=== PATIENT | female | born 2000 | race American Indian/Alaskan Native ===

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

== ENCOUNTER 2020-10-08 12:38 | Outpatient (CLI) | payer OTHER ==
[2020-10-08 12:57] VITALS: BP 102/56
[2020-10-08] MEDS ORDERED: LACTATED RINGERS 1,000 ML IV ONE (13:26)
== END 2020-10-08 14:00 | disposition home or self-care (01) ==
LOC: TRG 12:38 → APU 12:40 → TRG 14:00
PROVIDERS: ATTEND Obstetrics & Gynecology
DX: O47.03 False labor before 37 completed weeks of gestation, third trimester (principal); Z3A.34 34 weeks gestation of pregnancy
CPT/HCPCS: 59025

== ENCOUNTER 2020-11-10 14:46 | Outpatient (CLI) | payer OTHER ==
[2020-11-10 15:17] VITALS: BP 116/57
[2020-11-10 18:38] LABS: Bilirubin,Urine NEG (Negative); Blood,Urine MOD (Negative); Color,Urine Yellow (Yellow); Mucus,Urine FEW /HPF
[2020-11-10 18:40] LABS: Amphetamine Screen,Urine Negative; Benzodiazepines Screen,Urine Negative; Cannabinoid Screen,Urine Negative; Cocaine Screen,Urine Negative; Methadone Screen,Urine Negative; Opiate Screen,Urine Negative
--- NOTE | 2020-11-10 19:32 | Ultrasound Report ---
ULTRASOUND OBSTETRIC LIMITED ULTRASOUND BIOPHYSICAL PROFILE INDICATION / CLINICAL INFORMATION: BPP, ADRIANA, check placenta. Clinical Gestational Age (GA): 38.5 weeks.days COMPARISON: None available. FINDINGS: BREATHING MOVEMENT = 2 GROSS BODY MOVEMENT = 2 TONE = 2 QUALITATIVE AMNIOTIC FLUID VOLUME = 2 TOTAL BIOPHYSICAL SCORE = 8/8 HEART RATE (beats per minute): 131 AMNIOTIC FLUID INDEX (cm) = 11.4 (normal = 7-24 cm) PRESENTATION: Cephalic. ADDITIONAL FINDINGS: The placenta is located laterally on the right, is grade 3 and is free of the os . There is no evidence of abruption. IMPRESSION: 1. Biophysical Score = 8/8 2. ADRIANA 11.4 cm. 3. Grade 3 placenta without previa or abruption. Signer Name: Uzair Fowler MD Signed: 11/10/2020 7:28 PM Workstation Name: [id number]
== END 2020-11-10 19:34 | disposition home or self-care (01) ==
LOC: TRG 14:46 → APU 14:49 → TRG 19:34
DX: O47.1 False labor at or after 37 completed weeks of gestation (principal); Z3A.38 38 weeks gestation of pregnancy
CPT/HCPCS: 59025; 76815; 76819; 80307; 81001

== ENCOUNTER 2020-11-21 08:34 | Inpatient (IN) | payer OTHER ==
[2020-11-21] MEDS ORDERED: LOPERAMIDE 2 MG CAP PO PRN (10:00)
[2020-11-21] MEDS ORDERED: ePHEDrine SULFATE 50 MG/1 ML INJ IV PRN ×2 (10:00→20:18)
[2020-11-21] MEDS ORDERED: ACETAMINOPHEN 325 MG TAB PO PRN (10:00)
[2020-11-21] MEDS ORDERED: TERBUTALINE 1 MG/1 ML INJ SUB-Q PRN (10:00)
[2020-11-21] MEDS ORDERED: OXYTOCIN DRIP 30 UNITS/500 ML BAG IV SCH ×2 (10:00)
[2020-11-21] MEDS ORDERED: OXYTOCIN 10 UNIT/1 ML INJ IM PRN (10:00)
[2020-11-21] MEDS ORDERED: LIDOCAINE (2%) 20 MG/1 ML VIAL 20 ML MDV INFILTRATI SCH (10:00)
[2020-11-21] MEDS ORDERED: miSOPROStol 200 MCG TAB PR PRN (10:00)
[2020-11-21] MEDS ORDERED: METHYLERGONOVINE MALEATE 0.2 MG/ML VIAL IM PRN (10:00)
[2020-11-21] MEDS ORDERED: CARBOPROST TROMETHAMINE 250 MCG/1 ML INJ IM PRN (10:00)
[2020-11-21] MEDS ORDERED: MINERAL OIL 30 ML ORAL LIQD PO PRN (10:00)
[2020-11-21] MEDS ORDERED: fentaNYL 100 MCG/2 ML INJ IV PRN (10:00)
[2020-11-21] MEDS: LACTATED RINGERS 1,000 ML IV SCH ×2 (10:09→19:55)
[2020-11-21 10:10] LABS: Hematocrit 26.9 % (30.3-42.9); Hemoglobin 8.7 gm/dl (10.1-14.3); Mean Corpuscular HGB Conc 32 % (30-34); Mean Corpuscular Volume 76 fl (79-97); Platelet Count 265 K/mm3 (140-440); Red Blood Count 3.54 M/mm3 (3.65-5.03); Red Cell Distribution Width 19.9 % (13.2-15.2)
--- NOTE | 2020-11-21 10:15 | History and Physical Report ---
History of Present Illness Date of admission: 11/21/20 08:34 Chief complaint: Here for scheduled induction of labor. History of present illness: 20 year old female presents for scheduled induction of labor. Patient received care from [facility] and records are available. LMP uncertain. EDC 11/19/20 (based on 13 week US). significant for the following: (Late transfer-in for care; in early part of her , saw Fernando Green), genital herpes (has been on Valtrex suppression and has no lesions or prodromal symptoms), close spacing (has a 1 year old at home). 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 Past History Past Medical History: no pertinent history Past Surgical History: no surgical history [facility] History: herpes (on Valtrex suppression, no lesions or prodromal symptoms). denies: chlamydia, gonorrhea, hepatitis B, hepatitis C, HIV, syphilis, trichomonas Family/Genetic History: other (asthma (brother)) Social history: full code. denies: smoking, alcohol abuse, prescription drug abuse, IV drug use - Obstetrical History Expected Date of Delivery: 11/19/20 Actual Gestation: 40 Week(s) 2 Day(s) : 2 Para: 1 Hx # Term Pregnancies: 1 Number of Pregnancies: 0 Spontaneous Abortions: 0 Induced : 0 Number of Living Children: 1 Medications and Allergies Allergies Allergy/AdvReac Type Severity Reaction Status Date / Time No Known Allergies Allergy Verified 08/03/19 20:22 Home Medications Medication Instructions Recorded Confirmed Last Taken Type valACYclovir [Valtrex] 500 mg PO BID 11/21/20 11/21/20 11/21/20 History 0700 Active Meds: Active Medications Acetaminophen (Acetaminophen 325 Mg Tab) 650 mg PO Q4H PRN PRN Reason: Pain, Mild (1-3) Butorphanol Tartrate (Butorphanol 2 Mg/1 Ml Inj) 1 mg IV Q2H PRN PRN Reason: Pain, Moderate(4-6) LABOR PAIN Carboprost Tromethamine (Carboprost Tromethamine 250 Mcg/1 Ml Inj) 250 mcg IM ONCE PRN PRN Reason: Uterine Bleeding Ephedrine Sulfate (Ephedrine Sulfate 50 Mg/1 Ml Inj) 10 mg IV Q2M PRN PRN Reason: Hypotension Fentanyl (Fentanyl 100 Mcg/2 Ml Inj) 100 mcg IV Q2H PRN PRN Reason: Pain,Severe (7-10) LABOR PAIN Oxytocin/Sodium Chloride (Pitocin/Ns 30 Unit/500ml) 30 units in 500 mls @ 2 mls/hr IV TITR UBALDO; Protocol Lactated Ringer's (Lactated Ringers) 1,000 mls @ 125 mls/hr IV DIRECT UBALDO Last Admin: 11/21/20 10:09 Dose: 125 mls/hr Documented by: Oxytocin/Sodium Chloride (Pitocin/Ns 30 Unit/500ml) 30 units in 500 mls @ 40 mls/hr IV TITR UBALDO; Protocol Lidocaine (Lidocaine (2%) 20 Mg/1 Ml Vial 20 Ml Mdv) 20 ml INFILTRATI ONCE UBALDO Stop: 11/22/20 09:59 Loperamide HCl (Loperamide 2 Mg Cap) 2 mg PO ONCE PRN PRN Reason: give with Hemabate Methylergonovine Maleate (Methylergonovine Maleate 0.2 Mg/Ml Vial) 0.2 mg IM ONCE PRN PRN Reason: Uterine Bleeding Mineral Oil (Mineral Oil 30 Ml Oral Liqd) 30 ml PO QHS PRN PRN Reason: Constipation Misoprostol (Misoprostol 200 Mcg Tab) 800 mcg [place] ONCE PRN PRN Reason: Uterine Bleeding Oxytocin (Oxytocin 10 Unit/1 Ml Inj) 10 unit IM ONCE PRN PRN Reason: Uterine Bleeding Terbutaline Sulfate (Terbutaline 1 Mg/1 Ml Inj) 0.25 mg SUB-Q ONCE PRN PRN Reason: Hyperstimulation/Hypertonicity Valacyclovir HCl (Valacyclovir 500 Mg Tab) 500 mg PO BID UBALDO Review of Systems All systems: negative (contractions) - Vital Signs Vital signs: Vital Signs Pulse BP Pulse Ox 77 110/67 100 11/21/20 08:49 11/21/20 08:49 11/21/20 08:49 Temp Pulse Resp BP Pulse Ox 97.8 F 73 16 110/67 100 11/21/20 09:19 11/21/20 10:04 11/21/20 09:19 11/21/20 09:19 11/21/20 10:04 - Physical Exam Abdomen: Positive: normal appearance, soft. Negative: distention, tenderness, guarding, rigidity Genitourinary (Female): Positive: normal external genitalia, normal perenium. Negative: perineal/vulvar lesions (no lesions seen on careful exam with bright light upon admission) Vagina: Positive: normal moisture Uterus: Positive: enlarged. Negative: tender Anus/Rectum: Positive: normal perianal skin Extremities: Negative: tenderness, edema - Obstetrical FHR: category 1 Uterine Contraction Monitor Mode: External Cervical Dilatation: 1 Cervical Effacement Percentage: 50 station: -2 Uterine Contraction Pattern: Irregular Uterine Contraction Intensity: Mild Results All other labs normal. Assessment and Plan A: at 40 weeks, 2 days gestation. GBS negative. 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 P: Admit. Continuous EFM. Continue Valtrex suppression of HSV. Pitocin to augment labor. Discussed Pitocin augmentation of labor. Patient consented to augmentation of labor.
[2020-11-21] MEDS: valACYclovir 500 MG TAB PO SCH (10:21)
[2020-11-21] MEDS ORDERED: ONDANSETRON 4 MG/2 ML INJ IV PRN (12:58)
[2020-11-21] MEDS: BUTORPHANOL 2 MG/1 ML INJ IV PRN ×2 (13:08→19:08)
--- NOTE | 2020-11-21 14:25 | Ultrasound Report ---
US OB limited INDICATION / CLINICAL INFORMATION: Confirm presentation. COMPARISON: None available. FINDINGS: lie is cephalic. heart rate is 144. IMPRESSION: 1. lie is cephalic. Signer Name: Stuart Tolentino MD Signed: 11/21/2020 2:20 PM Workstation Name: [id number]
[2020-11-21] MEDS ORDERED: NALOXONE 2 MG/2 ML INJ IV PRN (20:18)
--- NOTE | 2020-11-21 20:21 | Anesthesia Consultation ---
Anesthesia Consult and Med Hx Date of service: 11/21/20 - Airway Anesthetic Teeth Evaluation: Good ROM Head & Neck: Adequate Mental/Hyoid Distance: Adequate Mallampati Class: Class II Intubation Access Assessment: Good - Pulmonary Exam CTA: Yes - Cardiac Exam Cardiac Exam: RRR - Pre-Operative Health Status ASA Pre-Surgery Classification: ASA2 Proposed Anesthetic Plan: Epidural - Pulmonary Hx Smoking: Yes (Marijuana none dring ) Hx Asthma: No Hx Respiratory Symptoms: No SOB: No COPD: No Home Oxygen Therapy: No Hx Pneumonia: No Hx Sleep Apnea: No - Cardiovascular System Hx Hypertension: No Hx Coronary Artery Disease: No Hx Heart Attack/AMI: No Hx Angina: No Hx Percutaneous Transluminal Coronary Angioplasty (PTCA): No Hx Cardia Arrhythmia: No Hx Pacemaker: No Hx Internal Defibrillator: No Hx Valvular Heart Disease: No Hx Heart Murmur: No Hx Peripheral Vascular Disease: No - Central Nervous System Hx Neuromuscular Disorder: No Hx Seizures: No CVA: No Hx Back Pain: No Hx Psychiatric Problems: No - Gastrointestinal Hx Ulcer: No Hx Gastroesophageal Reflux Disease: No - Endocrine Hx Renal Disease: No Hx End Stage Renal Disease: No Hx Cirrhosis: No Hx Liver Disease: No Hx Insulin Dependent Diabetes: No Hx Non-Insulin Dependent Diabetes: No Hx Thyroid Disease: No Hx Hypothyroidism: No Hx Hyperthyroidism: No - Hematic Hx Anemia: No Hx Sickle Cell Disease: No - Other Systems Hx Alcohol Use: No Hx Substance Use: No Hx Cancer: No Hx Obesity: No
--- NOTE | 2020-11-21 20:54 | Progress Note ---
Labor Epidural - Labor Epidural Start Time: 20:31 Stop Time: 20:41 Performed by:: NILDA ALAN Procedure: Patient is requesting a laboring epidural for laboring pain. Patient IDed, H&P reviewed, all questions and concerns were answered, and consent was signed. Timeout was performed at bedside. Patient in sitting position. Sterile prep and drape was performed. [3] ml of 1% lidocaine skin wheal at L[3]- L [4]. 18- gauge [place] epidural needle was advanced to loss of resistance with saline technique 6cm x2 attempt. Negative CSF negative blood. Epidural catheter advanced to [10] centimeters. [NEGATIVE] Aspiration [NEGATIVE] test dose. Sterile dressing applied. Patient tolerated procedure.
[2020-11-21] MEDS ORDERED: fentaNYL-BUPIV 2 MCG/ML-0.125% 200 MCG/100 ML BAG EPIDURAL SCH (21:00)
[2020-11-22] MEDS ORDERED: LANOLIN/ZINC/DIMETHICONE (LANSINOH) 7 GM TP PRN (01:13)
[2020-11-22] MEDS ORDERED: ACETAMINOPHEN 325 MG TAB PO PRN (01:13)
[2020-11-22] MEDS ORDERED: MAGNESIUM HYDROXIDE (MOM) ORAL LIQD UDC PO PRN (01:13)
[2020-11-22] MEDS ORDERED: diphenhydrAMINE 25 MG CAP PO PRN (01:13)
[2020-11-22] MEDS ORDERED: ONDANSETRON 4 MG/2 ML INJ IV PRN (01:13)
[2020-11-22] MEDS ORDERED: WITCH HAZEL/ GLYCERIN PAD TP PRN (01:13)
[2020-11-22] MEDS ORDERED: PROMETHAZINE 25 MG RECT SUPP PR PRN (01:13)
[2020-11-22] MEDS ORDERED: PROMETHAZINE 25 MG TAB PO PRN (01:13)
--- NOTE | 2020-11-22 01:20 | Procedure Note ---
Date of procedure: 11/22/20 Pre-op diagnosis: 40 wks iup Post-op diagnosis: same Procedure: ,MALE WGT 7'11", 8,9. no tears. rectal mucosa intact. spontaneous placenta. Anesthesia: epidural Surgeon: KAVITA JACK Estimated blood loss: 50-100ml Pathology: none Specimen disposition: discarded Condition: stable Disposition: PACU
--- NOTE | 2020-11-22 03:15 | Post Anesthesia Evaluation ---
- Post Anesthesia Evaluation Patient Participated: Yes Airway Patent: Yes Stable Respiratory Function: Yes Nausea/Vomiting: No Temp > 96.8F: Yes Pain Manageable: Yes Adequeate Hydration: Yes Anesthesia Complications: No Block Receding Appropriately: Yes Patient on Ventilator: No
[2020-11-22] MEDS: IBUPROFEN 600 MG TAB PO SCH ×4 (05:13→22:59)
[2020-11-22] MEDS: HYDROcodone/ACETAMINOPHEN 5-325 MG TAB PO PRN ×2 (08:40→14:32)
[2020-11-22] MEDS: valACYclovir 500 MG TAB PO SCH ×2 (10:15→21:53)
[2020-11-22] MEDS: DOCUSATE SODIUM 100 MG CAP PO SCH ×2 (10:15→21:53)
[2020-11-22 13:29] LABS: Hematocrit 26.4 % (30.3-42.9); Hemoglobin 8.3 gm/dl (10.1-14.3)
[2020-11-23] MEDS: IBUPROFEN 600 MG TAB PO SCH ×3 (05:49→21:50)
[2020-11-23] MEDS ORDERED: TETANUS,DIPH,PERTUSS(ACELL) VACCINE 0.5 ML SYRINGE IM ONE (06:00)
[2020-11-23] MEDS: DOCUSATE SODIUM 100 MG CAP PO SCH ×2 (09:52→21:50)
[2020-11-23] MEDS: FERROUS SULFATE 325 MG TAB PO SCH ×2 (09:52→21:50)
[2020-11-23] MEDS: valACYclovir 500 MG TAB PO SCH ×2 (09:52→21:50)
--- NOTE | 2020-11-23 10:11 | Progress Note ---
Assessment and Plan A: S/P Asymptomatic anemia P: Continue routine pp care Fe prescribed D/C home tomm if stable per pt's request Subjective - Subjective Date of service: 11/23/20 Principal diagnosis: s/p Patient reports: appetite normal, voiding normally, pain well controlled, ambulating normally, other (denies, sob, dizziness, or weakness) [place]: doing well, bottle feeding Objective - Vital Signs Latest vital signs: Vital Signs Temp Pulse Resp BP BP Pulse Ox 11/23/20 08:42 97.9 F 75 18 125/77 100 11/23/20 00:00 98 F 74 16 105/77 11/22/20 20:27 98.0 F 64 18 127/73 100 11/22/20 16:10 97.9 F 58 L 18 117/69 Intake and Output 11/22/20 11/23/20 11/23/20 22:59 06:59 14:59 Intake Total 440 360 Balance 440 360 Intake: Oral 440 360 Other: Total, Intake Amount 200 360 # Voids Void 1 1 1 - Exam Breasts: Present: normal Abdomen: Present: normal appearance, soft, normal bowel sounds Vulva: both: normal Uterus: Present: normal, firm Extremities: Present: normal - Labs Labs: Abnormal lab results 11/22/20 Range/Units 12:40 Hgb 8.3 L (10.1-14.3) gm/dl Hct 26.4 L (30.3-42.9) %
[2020-11-23] MEDS: HYDROcodone/ACETAMINOPHEN 5-325 MG TAB PO PRN (22:46)
[2020-11-24] MEDS: IBUPROFEN 600 MG TAB PO SCH ×3 (05:20→14:00)
[2020-11-24] MEDS: valACYclovir 500 MG TAB PO SCH (10:11)
[2020-11-24] MEDS: FERROUS SULFATE 325 MG TAB PO SCH (10:11)
[2020-11-24] MEDS: DOCUSATE SODIUM 100 MG CAP PO SCH (10:12)
--- NOTE | 2020-11-24 14:20 | Progress Note ---
Assessment and Plan A: day 2 S/P . Anemia. P: Discharge patient home today. Discussed with patient discharge instructions and warning signs. Advised patient to continue taking her vitamin and iron supplements at home. Advised patient to avoid intercourse, lifting, and heavy housework. Advised patient to follow up at [facility] in 6 weeks. Patient voiced understanding of all instructions. Subjective - Subjective Date of service: 11/24/20 Principal diagnosis: day 2 S/P Interval history: Patient requests discharge home today. Patient reports: appetite normal, voiding normally, pain well controlled, flatus, ambulating normally, no dizzy ambulation, no nauseated [place]: doing well Objective - Vital Signs Latest vital signs: Vital Signs Temp Pulse Resp BP BP Pulse Ox 11/24/20 08:20 98.6 F 56 L 20 97/54 99 11/24/20 01:13 98.3 F 73 20 122/60 96 11/23/20 22:46 18 11/23/20 16:40 97.6 F 67 18 120/57 11/23/20 15:05 16 Intake and Output 11/23/20 11/24/20 11/24/20 23:59 07:59 15:59 Intake Total 560 240 720 Balance 560 240 720 Intake: Oral 320 360 Intake, Free Water 240 240 360 Other: Total, Intake Amount 320 240 # Voids Void 1 1 1 - Exam Cardiovascular: Present: Regular rate Lungs: Present: Clear to auscultation Abdomen: Present: normal appearance, soft. Absent: distention, tenderness, guarding, rigidity Uterus: Present: normal, firm, fundal height below umbilicus. Absent: bogginess, tenderness Extremities: Present: normal. Absent: tenderness, edema
--- NOTE | 2020-11-24 14:23 | Discharge Summary ---
Providers - Providers Date of Admission: 11/21/20 08:34 Date of discharge: 11/24/20 Attending physician: KAVITA JACK MD Primary care physician: KAVITA JACK MD Hospitalization Reason for admission: induction of labor Delivery: Episiotomy: none Laceration: none Other procedures: none complications: none Discharge diagnosis: IUP at term delivered [place] baby: male Pertinent studies: Labs Hospital course: Normal hospital course Condition at discharge: Good Disposition: DC-01 TO HOME OR SELFCARE - Discharge Diagnoses (1) Term delivered Status: Acute (2) Anemia Status: Acute Qualifiers: Anemia type: iron deficiency Plan - Provider Discharge Summary Activity: routine, no sex for 6 weeks, no heavy lifting 4 weeks, no strenuous exercise Diet: routine Instructions: routine Additional instructions: Continue taking your vitamin and iron supplements at home. Follow up at [facility] in 6 weeks. Call your doctor immediately for: * Fever > 100.5 * Heavy vaginal bleeding ( >1 pad per hour) * Severe persistent headache * Shortness of breath * Reddened, hot, painful area to leg or breast - Follow up plan Follow up: KAVITA JACK MD [Primary Care Provider] - 6 Weeks
[2020-11-24 15:00] VITALS: BP 113/66
== END 2020-11-24 15:46 | disposition home or self-care (01) | DRG 774 ==
LOC: LD 08:34 → OB 11-22 02:59
PROC: 10E0XZZ Delivery of Products of Conception, External Approach (ICD-10-PCS; principal; 2020-11-22)
PROC: 3E0R3BZ Introduction of Anesthetic Agent into Spinal Canal, Percutaneous Approach (ICD-10-PCS; 2020-11-22)
PROC: 00HU33Z Insertion of Infusion Device into Spinal Canal, Percutaneous Approach (ICD-10-PCS; 2020-11-22)
PROC: 3E0234Z Introduction of Serum, Toxoid and Vaccine into Muscle, Percutaneous Approach (ICD-10-PCS; 2020-11-23)
DX: O98.32 Other infections with a predominantly sexual mode of transmission complicating childbirth (principal); Z3A.40 40 weeks gestation of pregnancy; Z37.0 Single live birth; O99.02 Anemia complicating childbirth; Z23 Encounter for immunization; Z20.822 Contact with and (suspected) exposure to COVID-19; D50.9 Iron deficiency anemia, unspecified; A60.00 Herpesviral infection of urogenital system, unspecified
CPT/HCPCS: 36415; 76815; 85014; 85018; 85027; 86592; 86850; 86900; 86901; 90471; 90715; G0378; J0595; J2405; J2590; J7120; U0003

== ENCOUNTER 2021-09-06 14:28 | Outpatient (CLI) | payer OTHER ==
[2021-09-06 17:28] LABS: Basophils % (Auto) 0.4 % (0.0-1.8); Eosinophils % (Auto) 0.4 % (0.0-4.3); Hemoglobin 8.7 gm/dl (10.1-14.3); Lymphocytes % (Auto) 22.9 % (13.4-35.0); Mean Corpuscular HGB Conc 32 % (30-34); Mean Corpuscular Volume 79 fl (79-97); Monocytes # (Auto) 0.8 K/mm3 (0.0-0.8); Monocytes % (Auto) 9.1 % (0.0-7.3); Platelet Count 270 K/mm3 (140-440); Red Blood Count 3.43 M/mm3 (3.65-5.03)
[2021-09-06 17:29] LABS: Red Cell Distribution Width 20.3 % (13.2-15.2)
--- NOTE | 2021-09-06 18:06 | Ultrasound Report ---
ULTRASOUND OBSTETRIC LIMITED ULTRASOUND BIOPHYSICAL PROFILE INDICATION / CLINICAL INFORMATION: Evaluate well being. COMPARISON: No relevant prior imaging study available. FINDINGS: BREATHING MOVEMENT = 2 GROSS BODY MOVEMENT = 2 TONE = 2 QUALITATIVE AMNIOTIC FLUID VOLUME = 2 TOTAL BIOPHYSICAL SCORE = 8/8 AMNIOTIC FLUID INDEX (cm) = 14.1 PRESENTATION: Cephalic. HEART RATE (beats per minute): 143 ADDITIONAL FINDINGS: None. IMPRESSION: 1. Biophysical Score = 8/8 2. No significant abnormality. Signer Name: Will Black MD Signed: 09/06/2021 6:01 PM Workstation Name: [id number]
[2021-09-06] MEDS ORDERED: FLUCONAZOLE 200 MG TAB PO ONE (19:00)
[2021-09-06 19:33] VITALS: BP 107/70
--- NOTE | 2021-09-06 19:44 | Ultrasound Report ---
ULTRASOUND OBSTETRIC INDICATION / CLINICAL INFORMATION: late care, interval growth. Clinical Gestational Age (GA): 40 week 2 days TECHNIQUE: Transabdominal. COMPARISON: None available. FINDINGS: There is a single intrauterine . Biparietal Diameter = 9.7 cm = 39 weeks, 4 day(s). Head Circumference = 31.5 cm = 35 weeks, 3 day(s). Abdominal Circumference = 32.4 cm = 36 weeks, 2 day(s). Femur Length = 6.9 cm = 35 weeks, 2 day(s). Average Ultrasound Age (AUA) = 36 weeks, 5 day(s). Heart Rate: 149 beats per minute. Estimated Weight in grams (if calculated): 2905 g +/- 430 g Estimated Weight Growth Percentile (if calculated): Position: cephalic. IMPRESSION: 1. Single, living intrauterine with estimated sonographic age of 36 weeks, 5 day(s). 2. No significant sonographic abnormality. Signer Name: Rudy Stack MD Signed: 09/06/2021 7:39 PM Workstation Name: [id number]
--- NOTE | 2021-09-06 20:01 | Event Note ---
Date: 09/06/21 Late care pt sent in for induction of labor with [facility]its [facility] dating her at 40.2wks. Pt seen here and pelvic unchanged 1cm and BPP 12/10 with adequate ADRIANA 14 and gest age 36.5wk, wt 2905g. Pt told that she should follow up in clinic with most likely her dates off by 2-3wks. Labor precaution givne and pt told to return if ctx every 5mins for 1hr, decreased movement or LOF or vag bleeding. Pt also treated for yeast infection today. Pt denies headache. Pt also given script for asymptomatic anemia with iron and vitamin C twice daily and valtrex med daily for HSVII for which she states her partner is not aware. Pt does not have any herpetic lesions at this time but has not been taken any suppression meds. Pt encouraged to be compliant. All questions encouraged and pt discharged home. Charge also states hospital staffing shortage this pm. This pt to be induced after 41wks with with indication of post term and to follow in office in 1wk.
--- NOTE | 2021-09-06 20:05 | Discharge Summary ---
Providers - Providers Date of discharge: 09/06/21 Attending physician: TAVON VEGA Primary care physician: TAVON VEGA Hospitalization Reason for admission: IUP - Hospital course: Pt here for scheduled induction not in labor with cervix 1cm and late care with only 2visit. Repeat u/s for interval growth gives pt gest ag 36.5wks, wt 2905g, pt was therefore discharged home, BPP 12/10 with ADRIANA 14 today to follow up in clinic and rescheduled for induction after 41wks. All questions encouraged and answered. Pt was not given any IV access or admission orders, she only remained in the labor and delivery suite. Labs today with hgb 8.7 and pt given iron supplement with vitamin C. Pt treated for yeast infection with diflucan tab 150mg x1 and pt given valtrex med suppression with no active lesions seen today. All questions encouraged and answered Condition at discharge: Good Disposition: 01 HOME / SELF CARE / HOMELESS Plan - Discharge Medications Prescriptions: Ferrous Sulfate [Ferrous Sulfate 324 MG] 324 mg PO BID 30 Days #60 Valacyclovir HCl [Valtrex] 1,000 mg PO DAILY 30 Days Ascorbic Acid [Vitamin C] 0 mg PO BID 30 Days #60 tablet - Provider Discharge Summary Activity: routine Diet: routine Instructions: routine Additional instructions: [] Smoking cessation referral if applicable(refer to patient education folder for contact #) [] Refer to [facility] Booklet Call your doctor immediately for: Decreased movement, Leakage of fluid, headache or vag bleeding or contractions every 5mins for 1hr * Fever > 100.5 * Heavy vaginal bleeding ( >1 pad per hour) * Severe persistent headache * Shortness of breath * Reddened, hot, painful area to leg or breast - Follow up plan Follow up: TAVON VEGA MD [Primary Care Provider] - 7 Days Forms: [facility] Discharge Summary
[2021-09-07] MEDS ORDERED: FLUCONAZOLE 100 MG TAB PO ONE (18:20)
== END 2021-09-06 19:40 | disposition home or self-care (01) ==
LOC: LD 14:28 → TRG 14:28
PROVIDERS: ATTEND Obstetrics & Gynecology
DX: Z34.83 Encounter for supervision of other normal pregnancy, third trimester (principal); Z3A.40 40 weeks gestation of pregnancy
CPT/HCPCS: 36415; 76815; 76816; 76819; 85014; 85018; 85025; 86592; 86850; 86900; 86901